=== PATIENT | female | born 1995 | race Hispanic/Latino ===

== ENCOUNTER 2016-06-27 20:42 | Emergency (ER) | payer OTHER ==
[2016-06-27] MEDS ORDERED: MORPHINE 4 MG/ML 1ML SYRINGE As Ordered ONE (21:38)
[2016-06-27] MEDS ORDERED: ACETAMINOPHEN 325 MG TAB As Ordered ONE (21:38)
[2016-06-27] MEDS ORDERED: ONDANSETRON 4 MG ORAL DISINTEGRATING TAB (S0181) As Ordered ONE (21:38)
[2016-06-27 21:48] LABS: BASO % 0.2 % (0.0-1.0); EOS # 0.2 K/mm3 (0.0-0.50); EOS % 1.1 % (0.0-3.0); LARGE UNSTAINED CELL # 0.1 K/mm3 (0.0-0.4); LARGE UNSTAINED CELL % 0.4 % (0.0-4.0); LYMPH # 0.4 K/mm3 (1.5-6.5); LYMPH % 2.5 % (24.0-44.0); MEAN CORPUSCULAR HEMOGLOBIN 26.8 pg (27.0-33.0); MEAN CORPUSCULAR HGB CONC 32.7 g/dl (32.0-36.5); MEAN CORPUSCULAR VOLUME 82.1 fl (80.0-96.0); MONO # 0.7 K/mm3 (0.0-0.8); NEUTROPHILS # 13.4 K/mm3 (1.8-7.7); NEUTROPHILS % 90.8 % (36.0-66.0); PLATELET COUNT, AUTOMATED 248 k/mm3 (150-450); RED CELL DISTRIBUTION WIDTH 12.8 % (11.5-14.5); WHITE BLOOD COUNT 14.8 K/mm3 (4.0-10.0)
[2016-06-27 22:14] LABS: ALBUMIN 3.3 GM/DL (3.2-5.2); ALBUMIN/GLOBULIN RATIO 0.77 (1.00-1.93); ALKALINE PHOSPHATASE 62 U/L (45-117); ALT/SGPT 16 U/L (12-78); AMYLASE 63 U/L (25-115); ANION GAP 9 MEQ/L (8-16); AST/SGOT 13 U/L (15-37); BILIRUBIN,DIRECT 0.1 MG/DL (0.0-0.2); BILIRUBIN,TOTAL 0.6 MG/DL (0.2-1.0); BLOOD UREA NITROGEN 10 MG/DL (7-18); CALCIUM LEVEL 8.3 MG/DL (8.5-10.1); CARBON DIOXIDE LEVEL 27 MEQ/L (21-32); CHLORIDE LEVEL 100 MEQ/L (98-107); CREATININE FOR GFR 0.86 MG/DL (0.55-1.02); GLOMERULAR FILTRATION RATE > 60.0 (>60); GLUCOSE, FASTING 97 MG/DL (70-105); POTASSIUM SERUM 3.7 MEQ/L (3.5-5.1); SODIUM LEVEL 136 MEQ/L (136-145); TOTAL PROTEIN 7.6 GM/DL (6.4-8.2)
--- NOTE | 2016-06-27 22:30 | REPUSA ---
CT of the abdomen and pelvis without contrast Clinical statement: Pain. Technique: Multiple axial CT images were obtained from the base of the lungs to the floor of the pelv is utilizing 5 mm axial slices without administration of contrast. Coronal and sagittal reconstructio ns were also obtained. No comparison is available. Findings: Chest: The visualized lung bases are clear. Abdomen: The kidneys are normal in size bilaterally. There is no evidence of hydronephrosis or nephro lithiasis. The liver, spleen, pancreas, gallbladder and adrenal glands are unremarkable. The aorta de monstrates normal caliber and contour. There is no abdominal lymphadenopathy or ascites. Pelvis: The bowel is unremarkable, with no obstructive or inflammatory changes. The appendix is porsha l. The urinary bladder is within normal limits. There is no pelvic lymphadenopathy or ascites. The ot her pelvic structures appear unremarkable. Bones: There are no suspicious osseous abnormalities seen. Impression: Unremarkable CT examination of the abdomen and pelvis.
--- NOTE | 2016-06-28 00:28 | EDDOCDS ---
Nurse's Notes [facility] Name: Laney Ames Age: 20 yrs Sex: Female : 1995 Arrival Date: 06/27/2016 Time: 20:42 Bed I5 / M5 Private MD: Alyson Avalos FNP Diagnosis: Urinary tract infection, site not specified-Pyelonephritis;Lower abdominal pain, unspecified-with Left Flank Pain Presentation: 06/27 20:50 Presenting complaint: Patient states: Left abdominal pain radiates to back. was seen at [address] urgent care. given Ibuprofen and antibiotic. has not helped with symptoms. Risk factors: the patient reports no vaginal bleeding. Adult Sepsis Screening: The patient does not have new or worsening altered mentation. Patient's respiratory rate is less than 22. Systolic blood pressure is greater than 100. Patient has a qSOFA score of 0- Negative Sepsis Screen. Suicide/Homicide risk assessment- the patient denies having any suicidal and/or homicidal ideations and does not present with any other emotional, behavioral or mental health complaints. Status: The patient is a dependent. Transition of care: patient was not received from another setting of care. 20:50 Acuity: MELIZA Level 3 rs3 20:50 Method Of Arrival: Walkin/Carried/Asstd rs3 Triage Assessment: 20:54 General: Appears in no apparent distress. Pain: Location: posterior aspect of left rs3 lateral abdomen, anterior aspect of left lateral abdomen and left upper quadrant. HIV screening NA for this visit Offered previously. GI: Reports lower abdominal pain, upper abd pain. CPS TEAM LEAD: 20:55 LMP 06/21/2016 3 Historical: - Allergies: No known drug Allergies; - Home Meds: 1. ibuprofen 800 mg oral tab 4 times per day 2. Adderall XR 30 mg Oral cp24 1 cap twice a day 3. levofloxacin 750 mg Oral tab 1 tab once daily - PMHx: ADHD; - PSHx: bunion removal; - Social history: Smoking status: Patient states was never smoker of tobacco. No barriers to communication noted, The patient speaks fluent Portuguese. - Family history: No immediate family members are acutely ill. - : The pt / caregiver states he / she is not on anticoagulants. Home medication list is obtained from the patient. - Exposure Risk Screening:: None identified. Screenin/24 00:25 Screening information is obtained from the patient. Fall risk: No risks identified. nn1 Assistance ADL's: requires no assistance with activities of daily living. Abuse/DV Screen: The patient / caregiver reports he/she is: not in a situation that causes fear, pain or injury. Nutritional screening: No deficits noted. Advance Directives: There is no active DNR order. home support is adequate. Assessment: 06/27 21:41 General: Appears in no apparent distress, uncomfortable, Behavior is appropriate for nn1 age, cooperative. Pain: Location: left upper quadrant Pain radiates to back Quality of pain is described as sharp, Pain began 1 day ago. Neurological: Level of Consciousness is awake, alert, obeys commands, Oriented to person, place, time. Respiratory: No deficits noted. GI: Abdomen is non- distended Bowel sounds present X 4 quads. Abd is soft X 4 quads Abd is tender to palpation in left upper quadrant. : Urine is cloudy, Reports pain in back when urinating, states she was diagnosed with UTI earlier today at urgent care, given antibiotics. States pain has become worse since. Derm: Skin is pink, warm & dry. 22:16 Reassessment: Patient appears in no apparent distress at this time. Patient states nn1 feeling better. Patient states symptoms have improved. 23:46 General: Appears in no apparent distress, comfortable, Behavior is appropriate for age, nn1 cooperative. Neurological: No deficits noted. Respiratory: No deficits noted. Derm: Skin is pink, warm & dry. 06/28 00:25 General: Appears in no apparent distress, comfortable, Behavior is appropriate for age, nn1 cooperative. Neurological: Level of Consciousness is awake, alert, obeys commands, Oriented to person, place, time. Respiratory: No deficits noted. Derm: Skin is pink, warm & dry. Vital Signs: 06/27 20:44 BP 126 / 85; Pulse 123; Resp 18 S; Temp 99.3(O); Pulse Ox 98% on R/A; Weight 79.38 kg gr2 (R); Height 5 ft. 6 in. (167.64 cm) (R); Pain 10/10; 21:54 BP 139 / 79; Pulse 107; Resp 20 S; Pulse Ox 100% on R/A; Pain 6/10; ms2 06/28 00:26 BP 119 / 74; Pulse 88; Resp 16; Temp 97.1(O); Pulse Ox 96% on R/A; Pain 4/10; rw1 06/27 20:44 Body Mass Index 28.25 (79.38 kg, 167.64 cm) gr2 Vitals: 06/27 20:44 Log In Time: June 27, 2016 at 20:44. gr2 ED Course: 20:43 Patient visited by Mat Padilla. gr2 20:43 Patient moved to Waiting gr2 20:44 Alyson Avalos is Private Physician. gr2 20:45 Patient visited by Mat Padilla. gr2 20:45 Patient moved to Pre RCE gr2 20:53 Triage Initiated rs3 20:59 Ruchi Pink PA-C is PHCP. ef1 20:59 Nadeem Dexter DO is Attending Physician. ef1 21:00 Patient visited by Ruchi Pink PA-C. ef1 21:00 Patient moved to I5 / cz 21:28 Patient visited by Ruchi Pink PA-C. ef1 21:40 -Blood Culture Sent. nn1 21:40 Lactic Acid (Caballero tube on ice) Sent. nn1 21:40 Amylase Sent. nn1 21:40 Basic Metabolic Profile Sent. nn1 21:40 CBC with Diff Sent. nn1 21:40 Lipase Sent. nn1 21:40 Liver Profile Sent. nn1 21:40 Urinalysis Sent. nn1 21:40 Urine Culture Sent. nn1 21:42 Inserted saline lock: 20 gauge in left forearm and blood collected. The patient nn1 tolerated the procedure well. 21:48 BLOOD CULTURES Sent. rs6 21:51 Patient visited by Arielle Colby PCA. rs6 21:51 Labs drawn. (by ED staff). Sent per order to lab. Labs/Blood culture drawn. rs6 21:53 Patient visited by Simon Ramirez RN. ms2 22:12 Patient visited by Ruchi Pink PA-C. ef1 22:23 Patient name changed from Laney\S\\S\Ames\S\ to Laney\S\Lyndsya\S\Ames. EDMS 22:25 [place] Payment Agreement was scanned into [employer] and attached to record. kf3 22:31 Patient visited by Delbert Smart. dpd 22:55 CT ABD & PELVIS: No Contrast Returned. EDMS 23:32 Patient visited by Ruchi Pink PA-C. ef1 23:47 Alyson Avalos is Referral Physician. ef1 06/28 00:26 The patient / caregiver is instructed regarding the plan of care and ED course. nn1 00:26 No procedures done that require assistance. nn1 00:26 Discontinued IV lock intact, bleeding controlled, pressure dressing applied, No rw1 redness/swelling at site. Administered Medications: 06/27 21:42 Drug: morphine 4 mg Route: IVP; Site: left antecubital; ms2 21:54 Follow up: BP 139 / 79; Pulse 107 bpm; Resp 20 bpm Spontaneous; Pulse Ox 100% RA; Pain ms2 10/12 Adult; down from 02/11 21:45 Drug: Ondansetron ODT 4 mg [ondansetron 4 mg disintegrating tablet (1 tabs)] Route: PO; ms2 21:48 Drug: NS 0.9% 1000 ml [sodium chloride 0.9 % intravenous solution] Route: IV; Rate: ms2 bolus; Site: left antecubital; 23:47 Follow up: IV Status: Completed infusion; IV Intake: 1000ml nn1 21:50 Drug: Acetaminophen 975 mg [acetaminophen 325 mg tablet (3 tabs)] Route: PO; ms2 23:46 Drug: cefTRIAXone 1 grams [ceftriaxone 250 mg solution for injection] Route: IVPB; nn1 Infused Over: 30 mins; Site: left forearm; 23:46 Drug: Phenazopyridine 200 mg [phenazopyridine 100 mg tablet (2 tabs)] Route: PO; nn1 Point of Care Testing: Urine : 21:51 hCG Reading: Negative; Control Reading: Positive; rs6 Ranges: Intake: 23:47 IV: 1000.00ml; Total: 1000.00ml. nn1 Order Results: Lab Order: Amylase; SPEC'M 06/27/16 21:25 Test: AMYLASE; Value: 63; Range: 25-115; Units: U/L; Status: F Lab Order: Basic Metabolic Profile; SPEC'M 06/27/16 21:25 Test: GLUCOSE, FASTING; Value: 97; Range: 70-105; Units: MG/DL; Status: F Test: BLOOD UREA NITROGEN; Value: 10; Range: 7-18; Units: MG/DL; Status: F Test: CREATININE FOR GFR; Value: 0.86; Range: 0.55-1.02; Units: MG/DL; Status: F Test: GLOMERULAR FILTRATION RATE; Value: > 60.0; Range: >60; Status: F Test: SODIUM LEVEL; Value: 136; Range: 136-145; Units: MEQ/L; Status: F Test: POTASSIUM SERUM; Value: 3.7; Range: 3.5-5.1; Units: MEQ/L; Status: F Test: CHLORIDE LEVEL; Value: 100; Range: 98-107; Units: MEQ/L; Status: F Test: CARBON DIOXIDE LEVEL; Value: 27; Range: 21-32; Units: MEQ/L; Status: F Test: ANION GAP; Value: 9; Range: 8-16; Units: MEQ/L; Status: F Test: CALCIUM LEVEL; Value: 8.3; Range: 8.5-10.1; Abnormal: Below low normal; Units: MG/DL; Status: F Test Note: ; Units are mL/min/1.73 m2 Chronic Kidney Disease Staging per NKF: Stage I & II GFR >=60 Normal to Mildly Decreased Stage III GFR 30-59 Moderately Decreased Stage IV GFR 15-29 Severely Decreased Stage V GFR <15 Very Little GFR Left ESRD GFR <15 on [employer] Lab Order: CBC with Diff; SPEC'M 06/27/16 21:25 Test: WHITE BLOOD COUNT; Value: 14.8; Range: 4.0-10.0; Abnormal: Above high normal; Units: K/mm3; Status: F Test: RED BLOOD COUNT; Value: 4.95; Range: 4.00-5.40; Units: M/mm3; Status: F Test: HEMOGLOBIN; Value: 13.3; Range: 12.0-16.0; Units: g/dl; Status: F Test: HEMATOCRIT; Value: 40.7; Range: 36.0-47.0; Units: %; Status: F Test: MEAN CORPUSCULAR VOLUME; Value: 82.1; Range: 80.0-96.0; Units: fl; Status: F Test: MEAN CORPUSCULAR HEMOGLOBIN; Value: 26.8; Range: 27.0-33.0; Abnormal: Below low normal; Units: pg; Status: F Test: MEAN CORPUSCULAR HGB CONC; Value: 32.7; Range: 32.0-36.5; Units: g/dl; Status: F Test: RED CELL DISTRIBUTION WIDTH; Value: 12.8; Range: 11.5-14.5; Units: %; Status: F Test: PLATELET COUNT, AUTOMATED; Value: 248; Range: 150-450; Units: k/mm3; Status: F Test: NEUTROPHILS %; Value: 90.8; Range: 36.0-66.0; Abnormal: Above high normal; Units: %; Status: F Test: LYMPH %; Value: 2.5; Range: 24.0-44.0; Abnormal: Below low normal; Units: %; Status: F Test: MONO %; Value: 5.0; Range: 0.0-5.0; Units: %; Status: F Test: EOS %; Value: 1.1; Range: 0.0-3.0; Units: %; Status: F Test: BASO %; Value: 0.2; Range: 0.0-1.0; Units: %; Status: F Test: LARGE UNSTAINED CELL %; Value: 0.4; Range: 0.0-4.0; Units: %; Status: F Test: NEUTROPHILS #; Value: 13.4; Range: 1.8-7.7; Abnormal: Above high normal; Units: K/mm3; Status: F Test: LYMPH #; Value: 0.4; Range: 1.5-6.5; Abnormal: Below low normal; Units: K/mm3; Status: F Test: MONO #; Value: 0.7; Range: 0.0-0.8; Units: K/mm3; Status: F Test: EOS #; Value: 0.2; Range: 0.0-0.50; Units: K/mm3; Status: F Test: BASO #; Value: 0.0; Range: 0.0-0.2; Units: K/mm3; Status: F Test: LARGE UNSTAINED CELL #; Value: 0.1; Range: 0.0-0.4; Units: K/mm3; Status: F Lab Order: Lipase; [facility] 06/27/16 21:25 Test: LIPASE; Value: 90; Range: 73-393; Units: U/L; Status: F Lab Order: Liver Profile; [facility] 06/27/16 21:25 Test: AST/SGOT; Value: 13; Range: 15-37; Abnormal: Below low normal; Units: U/L; Status: F Test: ALT/SGPT; Value: 16; Range: 12-78; Units: U/L; Status: F Test: ALKALINE PHOSPHATASE; Value: 62; Range: 45-117; Units: U/L; Status: F Test: BILIRUBIN,TOTAL; Value: 0.6; Range: 0.2-1.0; Units: MG/DL; Status: F Test: BILIRUBIN,DIRECT; Value: 0.1; Range: 0.0-0.2; Units: MG/DL; Status: F Test: TOTAL PROTEIN; Value: 7.6; Range: 6.4-8.2; Units: GM/DL; Status: F Test: ALBUMIN; Value: 3.3; Range: 3.2-5.2; Units: GM/DL; Status: F Test: ALBUMIN/GLOBULIN RATIO; Value: 0.77; Range: 1.00-1.93; Abnormal: Below low normal; Status: F Lab Order: Urinalysis; [facility] 06/27/16 21:25 Test: APPEARANCE, URINE; Value: HAZY; Range: CLEAR; Status: F Test: COLOR, URINE; Value: YELLOW; Range: YELLOW; Status: F Test: PH,URINE; Value: 7.0; Range: 5.0-9.0; Units: UNITS; Status: F Test: SPECIFIC GRAVITY URINE AUTO; Value: 1.019; Range: 1.002-1.035; Status: F Test: PROTEIN, URINE AUTO; Value: 1+; Range: NEGATIVE; Abnormal: Above high normal; Units: mg/dL; Status: F Test: GLUCOSE, URINE (UA) AUTO; Value: NEGATIVE; Range: NEGATIVE; Units: mg/dL; Status: F Test: KETONE, URINE AUTO; Value: NEGATIVE; Range: NEGATIVE; Units: mg/dL; Status: F Test: UROBILINOGEN, URINE AUTO; Value: 0.2; Range: 0.0-2.0; Units: mg/dL; Status: F Test: BILIRUBIN, URINE AUTO; Value: NEGATIVE; Range: NEGATIVE; Status: F Test: NITRITE, URINE AUTO; Value: NEGATIVE; Range: NEGATIVE; Status: F Test: LEUKOCYTE ESTERASE, URINE AUTO; Value: 1+; Range: NEGATIVE; Abnormal: Above high normal; Status: F Test: BLOOD, URINE BLOOD; Value: NEGATIVE; Range: NEGATIVE; Status: F Test: WBC, URINE AUTO; Value: 36; Range: 0-3; Abnormal: Above high normal; Units: /HPF; Status: F Test: RBC, URINE AUTO; Value: 12; Range: 0-3; Abnormal: Above high normal; Units: /HPF; Status: F Test: BACTERIA, URINE AUTO; Value: 1+; Range: NEGATIVE; Abnormal: Above high normal; Status: F Test: SQUAMOUS EPITHELIAL CELL UR AU; Value: 3; Range: 0-6; Units: /HPF; Status: F Test: MUCUS, URINE; Value: SMALL; Range: NEGATIVE; Status: F Test: HYALINE CAST, URINE AUTO; Value: 0; Range: 0-1; Units: /LPF; Status: F Lab Order: Lactic Acid (Caballero tube on ice); SPEC'M 06/27/16 21:25 Test: LACTIC ACID SEPSIS PROTOCOL; Value: 1.2; Range: 0.4-2.0; Units: MMOL/L; Status: F Radiology Order: CT ABD & PELVIS: No Contrast Test: CT ABD & PELVIS: No Contrast REASON FOR EXAMINATION: Renal colic; ; CT of the abdomen and pelvis without contrast; Clinical statement: Pain.; Technique: Multiple axial CT images were obtained from the base of the lungs to the floor of the pelv; is utilizing 5 mm axial slices without administration of contrast. Coronal and sagittal reconstructio; ns were also obtained.; No comparison is available.; Findings:; Chest: The visualized lung bases are clear.; Abdomen: The kidneys are normal in size bilaterally. There is no evidence of hydronephrosis or nephro; lithiasis. The liver, spleen, pancreas, gallbladder and adrenal glands are unremarkable. The aorta de; monstrates normal caliber and contour. There is no abdominal lymphadenopathy or ascites.; Pelvis: The bowel is unremarkable, with no obstructive or inflammatory changes. The appendix is porsha; l. The urinary bladder is within normal limits. There is no pelvic lymphadenopathy or ascites. The ot; her pelvic structures appear unremarkable.; Bones: There are no suspicious osseous abnormalities seen.; Impression: Unremarkable CT examination of the abdomen and pelvis.; ; Outcome: 23:47 Discharge ordered by Provider. ef1 06/28 00:25 Discharge Assessment: Patient awake, alert and oriented x 3. No cognitive and/or nn1 functional deficits noted. Patient verbalized understanding of disposition instructions. patient administered narcotics - yes. Pt provided with safe discharge. The following High Risk Discharge criteria are identified: None. Discharged to home ambulatory, with significant other. Condition: stable Condition: improved. CT Study completed. Property :Personal belongings accompany Pt. 00:27 Patient left the ED. rw1 Signatures: Dispatcher [employer] EDMS Simon Ramirez RN RN ms2 Rehan Marshall RN RN cz Donoghue, Dennis dpd Workman, Robert, LPN CONSULTING SYSTEMS ENGINEER rw1 Nazario Hayes, Reg Reg kf3 Ruchi Pink, PA-C PA-C ef1 Alcira Desouza RN RN rs3 Mat Padilla gr2 Arielle Colby, LEATHER STITCHER LEATHER STITCHER rs6 Georgina HessRN RN nn1 Corrections: (The following items were deleted from the chart) 06/27 22:15 20:54 Allergies: no known allergies; rs3 nn1 22:15 20:54 Home Meds: antibiotic unknown; rs3 nn1 MTDD
--- NOTE | 2016-06-28 00:28 | EDDOCDS ---
Physician Documentation [facility] Name: Laney Ames Age: 20 yrs Sex: Female : 1995 Arrival Date: 06/27/2016 Time: 20:42 Bed I5 / M5 Private MD: Alyson Avalos FNP Disposition: 06/27/16 23:47 Discharged to Home/Self Care. Impression: Urinary tract infection, site not specified - Pyelonephritis, Lower abdominal pain, unspecified - with Left Flank Pain. - Condition is Stable. - Discharge Instructions: Abdominal Pain, Adult, Urinary Tract Infection, [id number], Flank Pain, [id number]. - Prescriptions for Pyridium 200 mg Oral Tablet - take 1 tablet by ORAL route every 8 hours for 3 days; 9 tablet. - Medication Reconciliation, Local Pharmacy Hours form. - Follow up: Alyson Avalos; When: 1 - 2 days; Reason: Recheck today's complaints, Continuance of care. Follow up: Emergency Department; Reason: Worsening of conditions. - Problem is new. - Symptoms have improved. Historical: - Allergies: No known drug Allergies; - Home Meds: 1. ibuprofen 800 mg oral tab 4 times per day 2. Adderall XR 30 mg Oral cp24 1 cap twice a day 3. levofloxacin 750 mg Oral tab 1 tab once daily - PMHx: ADHD; - PSHx: bunion removal; - Social history: Smoking status: Patient states was never smoker of tobacco. No barriers to communication noted, The patient speaks fluent Eritrean. - Family history: No immediate family members are acutely ill. - : The pt / caregiver states he / she is not on anticoagulants. Home medication list is obtained from the patient. - Exposure Risk Screening:: None identified. LITHOPONE MILL WORKER: 06/27 20:55 LMP 06/21/2016 rs3 Vital Signs: 20:44 BP 126 / 85; Pulse 123; Resp 18 S; Temp 99.3(O); Pulse Ox 98% on R/A; Weight 79.38 kg / gr2 175 lbs (R); Height 5 ft. 6 in. (167.64 cm) (R); Pain 10/10; 21:54 BP 139 / 79; Pulse 107; Resp 20 S; Pulse Ox 100% on R/A; Pain 6/10; ms2 06/28 00:26 BP 119 / 74; Pulse 88; Resp 16; Temp 97.1(O); Pulse Ox 96% on R/A; Pain 4/10; rw1 06/27 20:44 Body Mass Index 28.25 (79.38 kg, 167.64 cm) gr2 MDM: 06/27 21:00 IV Saline Lock ordered. ef1 21:00 Undress patient appropriately for examination ordered. ef1 21:00 NS 0.9% 1000 ml IV at bolus once ordered. ef1 21:01 Urine Culture Ordered. EDMS 21:01 UCG by Nursing ordered. ef1 21:01 Amylase Ordered. EDMS 21:01 Basic Metabolic Profile Ordered. EDMS 21:01 CBC with Diff Ordered. EDMS 21:01 Lipase Ordered. EDMS 21:01 Liver Profile Ordered. EDMS 21:01 Urinalysis Ordered. EDMS 21:01 NOTHING BY MOUTH+DIET ordered. EDMS 21:11 morphine 4 mg IVP once ordered. ef1 21:11 Ondansetron ODT Oral Disintegrating Tablet 4 mg PO once ordered. ef1 21:11 -Blood Culture (Adults Only), peripheral from different site, or from device/port/PICC ef1 etc. if present ordered. 21:11 Acetaminophen Tablet 975 mg PO once ordered. ef1 21:12 CT ABD & PELVIS: No Contrast Ordered. EDMS 21:12 Lactic Acid (Caballero tube on ice) Ordered. EDMS 21:12 -Blood Culture Ordered. EDMS 21:24 -Blood Culture (Adults Only), peripheral from different site, or from device/port/PICC rs6 etc. if present complete. 21:26 BLOOD CULTURES Ordered. EDMS 22:18 Financial registration complete. kf3 22:25 [facility] Payment Agreement was scanned into [employer] and attached to record. kf3 23:32 Basic Metabolic Profile Reviewed. ef1 23:32 CBC with Diff Reviewed. ef1 23:32 Liver Profile Reviewed. ef1 23:32 Urinalysis Reviewed. ef1 23:32 Amylase Reviewed. ef1 23:32 Lipase Reviewed. ef1 23:32 Lactic Acid (Caballero tube on ice) Reviewed. ef1 23:32 CT ABD & PELVIS: No Contrast Reviewed. ef1 23:34 cefTRIAXone 1 grams IVPB once over 30 mins; dilute in 50mL of NS or D5W ordered. ef1 23:39 Phenazopyridine 200 mg PO once ordered. ef1 Point of Care Testing: Urine : 21:51 hCG Reading: Negative; Control Reading: Positive; rs6 Ranges: Administered Medications: 21:42 Drug: morphine 4 mg Route: IVP; Site: left antecubital; ms2 21:54 Follow up: BP 139 / 79; Pulse 107 bpm; Resp 20 bpm Spontaneous; Pulse Ox 100% RA; Pain ms2 10/12 Adult; down from 02/11 21:45 Drug: Ondansetron ODT 4 mg [ondansetron 4 mg disintegrating tablet (1 tabs)] Route: PO; ms2 21:48 Drug: NS 0.9% 1000 ml [sodium chloride 0.9 % intravenous solution] Route: IV; Rate: ms2 bolus; Site: left antecubital; 23:47 Follow up: IV Status: Completed infusion; IV Intake: 1000ml nn1 21:50 Drug: Acetaminophen 975 mg [acetaminophen 325 mg tablet (3 tabs)] Route: PO; ms2 23:46 Drug: cefTRIAXone 1 grams [ceftriaxone 250 mg solution for injection] Route: IVPB; nn1 Infused Over: 30 mins; Site: left forearm; 23:46 Drug: Phenazopyridine 200 mg [phenazopyridine 100 mg tablet (2 tabs)] Route: PO; nn1 Signatures: Dispatcher [employer] [facility] Jose Luis Fermin LPN MANAGER METROLOGY rw1 Nazario Hayes, Reg Reg kf3 Ruchi Pink, PA-C PA-C ef1 Alcira Desouza RN RN rs3 Arielle Colby, DOCK SUPERINTENDENT DOCK SUPERINTENDENT rs6 Georgina Hess RN RN nn1 Simon Ramirez RN ms2 The chart was reviewed and I authenticate all verbal orders and agree with the evaluation and treatment provided.Corrections: (The following items were deleted from the chart) 22:15 20:54 Allergies: no known allergies; rs3 nn1 22:15 20:54 Home Meds: antibiotic unknown; rs3 nn1 Attachments: 22:25 [facility] Payment Agreement kf3 MTDD
--- NOTE | 2016-06-30 01:28 | EDDOCDS ---
Nurse's Notes [facility] Name: Laney Ames Age: 20 yrs Sex: Female : 1995 Arrival Date: 06/27/2016 Time: 20:42 Bed I5 / M5 Private MD: Alyson Avalos FNP Diagnosis: Urinary tract infection, site not specified-Pyelonephritis;Lower abdominal pain, unspecified-with Left Flank Pain Presentation: 06/27 20:50 Presenting complaint: Patient states: Left abdominal pain radiates to back. was seen at [address] urgent care. given Ibuprofen and antibiotic. has not helped with symptoms. Risk factors: the patient reports no vaginal bleeding. Adult Sepsis Screening: The patient does not have new or worsening altered mentation. Patient's respiratory rate is less than 22. Systolic blood pressure is greater than 100. Patient has a qSOFA score of 0- Negative Sepsis Screen. Suicide/Homicide risk assessment- the patient denies having any suicidal and/or homicidal ideations and does not present with any other emotional, behavioral or mental health complaints. Status: The patient is a dependent. Transition of care: patient was not received from another setting of care. 20:50 Acuity: MELIZA Level 3 rs3 20:50 Method Of Arrival: Walkin/Carried/Asstd rs3 Triage Assessment: 20:54 General: Appears in no apparent distress. Pain: Location: posterior aspect of left rs3 lateral abdomen, anterior aspect of left lateral abdomen and left upper quadrant. HIV screening NA for this visit Offered previously. GI: Reports lower abdominal pain, upper abd pain. RAG BOILER: 20:55 LMP 06/21/2016 3 Historical: - Allergies: No known drug Allergies; - Home Meds: 1. ibuprofen 800 mg oral tab 4 times per day 2. Adderall XR 30 mg Oral cp24 1 cap twice a day 3. levofloxacin 750 mg Oral tab 1 tab once daily - PMHx: ADHD; - PSHx: bunion removal; - Social history: Smoking status: Patient states was never smoker of tobacco. No barriers to communication noted, The patient speaks fluent Icelandic. - Family history: No immediate family members are acutely ill. - : The pt / caregiver states he / she is not on anticoagulants. Home medication list is obtained from the patient. - Exposure Risk Screening:: None identified. Screenin/24 00:25 Screening information is obtained from the patient. Fall risk: No risks identified. nn1 Assistance ADL's: requires no assistance with activities of daily living. Abuse/DV Screen: The patient / caregiver reports he/she is: not in a situation that causes fear, pain or injury. Nutritional screening: No deficits noted. Advance Directives: There is no active DNR order. home support is adequate. Assessment: 06/27 21:41 General: Appears in no apparent distress, uncomfortable, Behavior is appropriate for nn1 age, cooperative. Pain: Location: left upper quadrant Pain radiates to back Quality of pain is described as sharp, Pain began 1 day ago. Neurological: Level of Consciousness is awake, alert, obeys commands, Oriented to person, place, time. Respiratory: No deficits noted. GI: Abdomen is non- distended Bowel sounds present X 4 quads. Abd is soft X 4 quads Abd is tender to palpation in left upper quadrant. : Urine is cloudy, Reports pain in back when urinating, states she was diagnosed with UTI earlier today at urgent care, given antibiotics. States pain has become worse since. Derm: Skin is pink, warm & dry. 22:16 Reassessment: Patient appears in no apparent distress at this time. Patient states nn1 feeling better. Patient states symptoms have improved. 23:46 General: Appears in no apparent distress, comfortable, Behavior is appropriate for age, nn1 cooperative. Neurological: No deficits noted. Respiratory: No deficits noted. Derm: Skin is pink, warm & dry. 06/28 00:25 General: Appears in no apparent distress, comfortable, Behavior is appropriate for age, nn1 cooperative. Neurological: Level of Consciousness is awake, alert, obeys commands, Oriented to person, place, time. Respiratory: No deficits noted. Derm: Skin is pink, warm & dry. Vital Signs: 06/27 20:44 BP 126 / 85; Pulse 123; Resp 18 S; Temp 99.3(O); Pulse Ox 98% on R/A; Weight 79.38 kg gr2 (R); Height 5 ft. 6 in. (167.64 cm) (R); Pain 10/10; 21:54 BP 139 / 79; Pulse 107; Resp 20 S; Pulse Ox 100% on R/A; Pain 6/10; ms2 06/28 00:26 BP 119 / 74; Pulse 88; Resp 16; Temp 97.1(O); Pulse Ox 96% on R/A; Pain 4/10; rw1 06/27 20:44 Body Mass Index 28.25 (79.38 kg, 167.64 cm) gr2 Vitals: 06/27 20:44 Log In Time: June 27, 2016 at 20:44. gr2 ED Course: 20:43 Patient visited by Mat Padilla. gr2 20:43 Patient moved to Waiting gr2 20:44 Alyson Avalos is Private Physician. gr2 20:45 Patient visited by Mat Padilla. gr2 20:45 Patient moved to Pre RCE gr2 20:53 Triage Initiated rs3 20:59 Ruchi Pink PA-C is PHCP. ef1 20:59 Nadeem Dexter DO is Attending Physician. ef1 21:00 Patient visited by Ruchi Pink PA-C. ef1 21:00 Patient moved to I5 / cz 21:28 Patient visited by Ruchi Pink PA-C. ef1 21:40 -Blood Culture Sent. nn1 21:40 Lactic Acid (Caballero tube on ice) Sent. nn1 21:40 Amylase Sent. nn1 21:40 Basic Metabolic Profile Sent. nn1 21:40 CBC with Diff Sent. nn1 21:40 Lipase Sent. nn1 21:40 Liver Profile Sent. nn1 21:40 Urinalysis Sent. nn1 21:40 Urine Culture Sent. nn1 21:42 Inserted saline lock: 20 gauge in left forearm and blood collected. The patient nn1 tolerated the procedure well. 21:48 BLOOD CULTURES Sent. rs6 21:51 Patient visited by Arielle Colby PCA. rs6 21:51 Labs drawn. (by ED staff). Sent per order to lab. Labs/Blood culture drawn. rs6 21:53 Patient visited by Simon Ramirez RN. ms2 22:12 Patient visited by Ruchi Pink PA-C. ef1 22:23 Patient name changed from Laney\S\\S\Ames\S\ to Laney\S\Lyndsay\S\Ames. EDMS 22:25 [facility] Payment Agreement was scanned into [employer] and attached to record. kf3 22:31 Patient visited by Delbert Smart. dpd 22:55 CT ABD & PELVIS: No Contrast Returned. EDMS 23:32 Patient visited by Ruchi Pink PA-C. ef1 23:47 Alyson Avalos is Referral Physician. ef1 06/28 00:26 The patient / caregiver is instructed regarding the plan of care and ED course. nn1 00:26 No procedures done that require assistance. nn1 00:26 Discontinued IV lock intact, bleeding controlled, pressure dressing applied, No rw1 redness/swelling at site. 17:33 T-Sheet-- Draft Copy was scanned into [employer] and attached to record. klr 06/29 19:55 Radiology Report was scanned into [employer] and attached to record. klr Administered Medications: 06/27 21:42 Drug: morphine 4 mg Route: IVP; Site: left antecubital; ms2 21:54 Follow up: BP 139 / 79; Pulse 107 bpm; Resp 20 bpm Spontaneous; Pulse Ox 100% RA; Pain ms2 10/12 Adult; down from 02/11 21:45 Drug: Ondansetron ODT 4 mg [ondansetron 4 mg disintegrating tablet (1 tabs)] Route: PO; ms2 21:48 Drug: NS 0.9% 1000 ml [sodium chloride 0.9 % intravenous solution] Route: IV; Rate: ms2 bolus; Site: left antecubital; 23:47 Follow up: IV Status: Completed infusion; IV Intake: 1000ml nn1 21:50 Drug: Acetaminophen 975 mg [acetaminophen 325 mg tablet (3 tabs)] Route: PO; ms2 23:46 Drug: cefTRIAXone 1 grams [ceftriaxone 250 mg solution for injection] Route: IVPB; nn1 Infused Over: 30 mins; Site: left forearm; 23:46 Drug: Phenazopyridine 200 mg [phenazopyridine 100 mg tablet (2 tabs)] Route: PO; nn1 Point of Care Testing: Urine : 21:51 hCG Reading: Negative; Control Reading: Positive; rs6 Ranges: Intake: 23:47 IV: 1000.00ml; Total: 1000.00ml. nn1 Order Results: Lab Order: Amylase; SPEC'M 06/27/16 21:25 Test: AMYLASE; Value: 63; Range: 25-115; Units: U/L; Status: F Lab Order: Basic Metabolic Profile; SPEC'06/27/16 21:25 Test: GLUCOSE, FASTING; Value: 97; Range: 70-105; Units: MG/DL; Status: F Test: BLOOD UREA NITROGEN; Value: 10; Range: 7-18; Units: MG/DL; Status: F Test: CREATININE FOR GFR; Value: 0.86; Range: 0.55-1.02; Units: MG/DL; Status: F Test: GLOMERULAR FILTRATION RATE; Value: > 60.0; Range: >60; Status: F Test: SODIUM LEVEL; Value: 136; Range: 136-145; Units: MEQ/L; Status: F Test: POTASSIUM SERUM; Value: 3.7; Range: 3.5-5.1; Units: MEQ/L; Status: F Test: CHLORIDE LEVEL; Value: 100; Range: 98-107; Units: MEQ/L; Status: F Test: CARBON DIOXIDE LEVEL; Value: 27; Range: 21-32; Units: MEQ/L; Status: F Test: ANION GAP; Value: 9; Range: 8-16; Units: MEQ/L; Status: F Test: CALCIUM LEVEL; Value: 8.3; Range: 8.5-10.1; Abnormal: Below low normal; Units: MG/DL; Status: F Test Note: ; Units are mL/min/1.73 m2 Chronic Kidney Disease Staging per NKF: Stage I & II GFR >=60 Normal to Mildly Decreased Stage III GFR 30-59 Moderately Decreased Stage IV GFR 15-29 Severely Decreased Stage V GFR <15 Very Little GFR Left ESRD GFR <15 on OIL REFINERY OPERATOR Lab Order: CBC with Diff; SPEC06/27/16 21:25 Test: WHITE BLOOD COUNT; Value: 14.8; Range: 4.0-10.0; Abnormal: Above high normal; Units: K/mm3; Status: F Test: RED BLOOD COUNT; Value: 4.95; Range: 4.00-5.40; Units: M/mm3; Status: F Test: HEMOGLOBIN; Value: 13.3; Range: 12.0-16.0; Units: g/dl; Status: F Test: HEMATOCRIT; Value: 40.7; Range: 36.0-47.0; Units: %; Status: F Test: MEAN CORPUSCULAR VOLUME; Value: 82.1; Range: 80.0-96.0; Units: fl; Status: F Test: MEAN CORPUSCULAR HEMOGLOBIN; Value: 26.8; Range: 27.0-33.0; Abnormal: Below low normal; Units: pg; Status: F Test: MEAN CORPUSCULAR HGB CONC; Value: 32.7; Range: 32.0-36.5; Units: g/dl; Status: F Test: RED CELL DISTRIBUTION WIDTH; Value: 12.8; Range: 11.5-14.5; Units: %; Status: F Test: PLATELET COUNT, AUTOMATED; Value: 248; Range: 150-450; Units: k/mm3; Status: F Test: NEUTROPHILS %; Value: 90.8; Range: 36.0-66.0; Abnormal: Above high normal; Units: %; Status: F Test: LYMPH %; Value: 2.5; Range: 24.0-44.0; Abnormal: Below low normal; Units: %; Status: F Test: MONO %; Value: 5.0; Range: 0.0-5.0; Units: %; Status: F Test: EOS %; Value: 1.1; Range: 0.0-3.0; Units: %; Status: F Test: BASO %; Value: 0.2; Range: 0.0-1.0; Units: %; Status: F Test: LARGE UNSTAINED CELL %; Value: 0.4; Range: 0.0-4.0; Units: %; Status: F Test: NEUTROPHILS #; Value: 13.4; Range: 1.8-7.7; Abnormal: Above high normal; Units: K/mm3; Status: F Test: LYMPH #; Value: 0.4; Range: 1.5-6.5; Abnormal: Below low normal; Units: K/mm3; Status: F Test: MONO #; Value: 0.7; Range: 0.0-0.8; Units: K/mm3; Status: F Test: EOS #; Value: 0.2; Range: 0.0-0.50; Units: K/mm3; Status: F Test: BASO #; Value: 0.0; Range: 0.0-0.2; Units: K/mm3; Status: F Test: LARGE UNSTAINED CELL #; Value: 0.1; Range: 0.0-0.4; Units: K/mm3; Status: F Lab Order: Lipase; [facility] 06/27/16 21:25 Test: LIPASE; Value: 90; Range: 73-393; Units: U/L; Status: F Lab Order: Liver Profile; [facility] 06/27/16:25 Test: AST/SGOT; Value: 13; Range: 15-37; Abnormal: Below low normal; Units: U/L; Status: F Test: ALT/SGPT; Value: 16; Range: 12-78; Units: U/L; Status: F Test: ALKALINE PHOSPHATASE; Value: 62; Range: 45-117; Units: U/L; Status: F Test: BILIRUBIN,TOTAL; Value: 0.6; Range: 0.2-1.0; Units: MG/DL; Status: F Test: BILIRUBIN,DIRECT; Value: 0.1; Range: 0.0-0.2; Units: MG/DL; Status: F Test: TOTAL PROTEIN; Value: 7.6; Range: 6.4-8.2; Units: GM/DL; Status: F Test: ALBUMIN; Value: 3.3; Range: 3.2-5.2; Units: GM/DL; Status: F Test: ALBUMIN/GLOBULIN RATIO; Value: 0.77; Range: 1.00-1.93; Abnormal: Below low normal; Status: F Lab Order: Urinalysis; [facility] 06/27/16 Test: APPEARANCE, URINE; Value: HAZY; Range: CLEAR; Status: F Test: COLOR, URINE; Value: YELLOW; Range: YELLOW; Status: F Test: PH,URINE; Value: 7.0; Range: 5.0-9.0; Units: UNITS; Status: F Test: SPECIFIC GRAVITY URINE AUTO; Value: 1.019; Range: 1.002-1.035; Status: F Test: PROTEIN, URINE AUTO; Value: 1+; Range: NEGATIVE; Abnormal: Above high normal; Units: mg/dL; Status: F Test: GLUCOSE, URINE (UA) AUTO; Value: NEGATIVE; Range: NEGATIVE; Units: mg/dL; Status: F Test: KETONE, URINE AUTO; Value: NEGATIVE; Range: NEGATIVE; Units: mg/dL; Status: F Test: UROBILINOGEN, URINE AUTO; Value: 0.2; Range: 0.0-2.0; Units: mg/dL; Status: F Test: BILIRUBIN, URINE AUTO; Value: NEGATIVE; Range: NEGATIVE; Status: F Test: NITRITE, URINE AUTO; Value: NEGATIVE; Range: NEGATIVE; Status: F Test: LEUKOCYTE ESTERASE, URINE AUTO; Value: 1+; Range: NEGATIVE; Abnormal: Above high normal; Status: F Test: BLOOD, URINE BLOOD; Value: NEGATIVE; Range: NEGATIVE; Status: F Test: WBC, URINE AUTO; Value: 36; Range: 0-3; Abnormal: Above high normal; Units: /HPF; Status: F Test: RBC, URINE AUTO; Value: 12; Range: 0-3; Abnormal: Above high normal; Units: /HPF; Status: F Test: BACTERIA, URINE AUTO; Value: 1+; Range: NEGATIVE; Abnormal: Above high normal; Status: F Test: SQUAMOUS EPITHELIAL CELL UR AU; Value: 3; Range: 0-6; Units: /HPF; Status: F Test: MUCUS, URINE; Value: SMALL; Range: NEGATIVE; Status: F Test: HYALINE CAST, URINE AUTO; Value: 0; Range: 0-1; Units: /LPF; Status: F Lab Order: Urine Culture; SPEC'M 06/27/16 21:25 Test: URINE CULTURE; Value: <EXTERNAL COMMENT eCWMed> FULL REPORT IN LAB NOTES (eCW and Medent).; Status: F Test: URINE CULTURE; Value: URINE CULTURE RESULT SPECIMEN APPEARS CONTAMINATED; Status: F Lab Order: Lactic Acid (Caballero tube on ice); SPEC'M 06/27/16 21:25 Test: LACTIC ACID SEPSIS PROTOCOL; Value: 1.2; Range: 0.4-2.0; Units: MMOL/L; Status: F Lab Order: -Blood Culture; SPEC'M 06/27/16 21:25 Test: BLOOD CULTURE; Value: No growth after 24 hours . All specimens observed; Status: F Test: BLOOD CULTURE; Value: for 5 days. Results final at that time.; Status: F Test: BLOOD CULTURE; Value: No Growth after 48 hours. All Specimens observed; Status: F Test: BLOOD CULTURE; Value: for 7 days. Results final at that time.; Status: F Lab Order: BLOOD CULTURES; SPEC'M 06/27/16 21:47 Test: BLOOD CULTURE; Value: No growth after 24 hours . All specimens observed; Status: F Test: BLOOD CULTURE; Value: for 5 days. Results final at that time.; Status: F Test: BLOOD CULTURE; Value: No Growth after 48 hours. All Specimens observed; Status: F Test: BLOOD CULTURE; Value: for 7 days. Results final at that time.; Status: F Radiology Order: CT ABD & PELVIS: No Contrast Test: CT ABD & PELVIS: No Contrast REASON FOR EXAMINATION: Renal colic; ; CT of the abdomen and pelvis without contrast; Clinical statement: Pain.; Technique: Multiple axial CT images were obtained from the base of the lungs to the floor of the pelv; is utilizing 5 mm axial slices without administration of contrast. Coronal and sagittal reconstructio; ns were also obtained.; No comparison is available.; Findings:; Chest: The visualized lung bases are clear.; Abdomen: The kidneys are normal in size bilaterally. There is no evidence of hydronephrosis or nephro; lithiasis. The liver, spleen, pancreas, gallbladder and adrenal glands are unremarkable. The aorta de; monstrates normal caliber and contour. There is no abdominal lymphadenopathy or ascites.; Pelvis: The bowel is unremarkable, with no obstructive or inflammatory changes. The appendix is porsha; l. The urinary bladder is within normal limits. There is no pelvic lymphadenopathy or ascites. The ot; her pelvic structures appear unremarkable.; Bones: There are no suspicious osseous abnormalities seen.; Impression: Unremarkable CT examination of the abdomen and pelvis.; ; Outcome: 23:47 Discharge ordered by Provider. ef1 06/28 00:25 Discharge Assessment: Patient awake, alert and oriented x 3. No cognitive and/or nn1 functional deficits noted. Patient verbalized understanding of disposition instructions. patient administered narcotics - yes. Pt provided with safe discharge. The following High Risk Discharge criteria are identified: None. Discharged to home ambulatory, with significant other. Condition: stable Condition: improved. CT Study completed. Property :Personal belongings accompany Pt. 00:27 Patient left the ED. rw1 Signatures: Dispatcher [employer] EDMS Simon Ramirez,RN RN ms2 Rehan Marshall, JUANA RN cz Delbert Smart Robert,EXECUTIVE STAFF ASSISTANT EXECUTIVE STAFF ASSISTANT rw1 Nazario Hayes, Reg Reg kf3 Ruchi Pink, PA-C PA-C ef1 Alcira Desouza,JUANA RN rs3 Mat Padilla gr2 Earnestine, Arielle, ROTARY SLICING MACHINE OPERATOR ROTARY SLICING MACHINE OPERATOR rs6 Georgina Hess RN RN nn1 Makayla Tom Corrections: (The following items were deleted from the chart) 06/27 22:15 20:54 Allergies: no known allergies; 3 nn1 22:15 20:54 Home Meds: antibiotic unknown; [facility] nn1 Chart Complete MTDD
--- NOTE | 2016-06-30 01:28 | EDDOCDS ---
Physician Documentation [facility] Name: Laney Ames Age: 20 yrs Sex: Female : 1995 Arrival Date: 06/27/2016 Time: 20:42 Bed I5 / M5 Private MD: Alyson Avalos FNP Disposition: 06/27/16 23:47 Discharged to Home/Self Care. Impression: Urinary tract infection, site not specified - Pyelonephritis, Lower abdominal pain, unspecified - with Left Flank Pain. - Condition is Stable. - Discharge Instructions: Abdominal Pain, Adult, Urinary Tract Infection, [id number], Flank Pain, [id number]. - Prescriptions for Pyridium 200 mg Oral Tablet - take 1 tablet by ORAL route every 8 hours for 3 days; 9 tablet. - Medication Reconciliation, Local Pharmacy Hours form. - Follow up: Alyson Avalos; When: 1 - 2 days; Reason: Recheck today's complaints, Continuance of care. Follow up: Emergency Department; Reason: Worsening of conditions. - Problem is new. - Symptoms have improved. Historical: - Allergies: No known drug Allergies; - Home Meds: 1. ibuprofen 800 mg oral tab 4 times per day 2. Adderall XR 30 mg Oral cp24 1 cap twice a day 3. levofloxacin 750 mg Oral tab 1 tab once daily - PMHx: ADHD; - PSHx: bunion removal; - Social history: Smoking status: Patient states was never smoker of tobacco. No barriers to communication noted, The patient speaks fluent Estonian. - Family history: No immediate family members are acutely ill. - : The pt / caregiver states he / she is not on anticoagulants. Home medication list is obtained from the patient. - Exposure Risk Screening:: None identified. TEMPORARY DATA ENTRY CLERK: 06/27 20:55 LMP 06/21/2016 rs3 Vital Signs: 20:44 BP 126 / 85; Pulse 123; Resp 18 S; Temp 99.3(O); Pulse Ox 98% on R/A; Weight 79.38 kg / gr2 175 lbs (R); Height 5 ft. 6 in. (167.64 cm) (R); Pain 10/10; 21:54 BP 139 / 79; Pulse 107; Resp 20 S; Pulse Ox 100% on R/A; Pain 6/10; ms2 06/28 00:26 BP 119 / 74; Pulse 88; Resp 16; Temp 97.1(O); Pulse Ox 96% on R/A; Pain 4/10; rw1 06/27 20:44 Body Mass Index 28.25 (79.38 kg, 167.64 cm) gr2 MDM: 06/27 21:00 IV Saline Lock ordered. ef1 21:00 Undress patient appropriately for examination ordered. ef1 21:00 NS 0.9% 1000 ml IV at bolus once ordered. ef1 21:01 Urine Culture Ordered. EDMS 21:01 UCG by Nursing ordered. ef1 21:01 Amylase Ordered. EDMS 21:01 Basic Metabolic Profile Ordered. EDMS 21:01 CBC with Diff Ordered. EDMS 21:01 Lipase Ordered. EDMS 21:01 Liver Profile Ordered. EDMS 21:01 Urinalysis Ordered. EDMS 21:01 NOTHING BY MOUTH+DIET ordered. EDMS 21:11 morphine 4 mg IVP once ordered. ef1 21:11 Ondansetron ODT Oral Disintegrating Tablet 4 mg PO once ordered. ef1 21:11 -Blood Culture (Adults Only), peripheral from different site, or from device/port/PICC ef1 etc. if present ordered. 21:11 Acetaminophen Tablet 975 mg PO once ordered. ef1 21:12 CT ABD & PELVIS: No Contrast Ordered. EDMS 21:12 Lactic Acid (Caballero tube on ice) Ordered. EDMS 21:12 -Blood Culture Ordered. EDMS 21:24 -Blood Culture (Adults Only), peripheral from different site, or from device/port/PICC rs6 etc. if present complete. 21:26 BLOOD CULTURES Ordered. EDMS 22:18 Financial registration complete. kf3 22:25 [facility] Payment Agreement was scanned into [employer] and attached to record. kf3 23:32 Basic Metabolic Profile Reviewed. ef1 23:32 CBC with Diff Reviewed. ef1 23:32 Liver Profile Reviewed. ef1 23:32 Urinalysis Reviewed. ef1 23:32 Amylase Reviewed. ef1 23:32 Lipase Reviewed. ef1 23:32 Lactic Acid (Caballero tube on ice) Reviewed. ef1 23:32 CT ABD & PELVIS: No Contrast Reviewed. ef1 23:34 cefTRIAXone 1 grams IVPB once over 30 mins; dilute in 50mL of NS or D5W ordered. ef1 23:39 Phenazopyridine 200 mg PO once ordered. ef1 06/28 17:33 T-Sheet-- Draft Copy was scanned into [employer] and attached to record. klr 06/29 19:55 Radiology Report was scanned into [employer] and attached to record. [facility] Point of Care Testing: Urine : 06/27 21:51 hCG Reading: Negative; Control Reading: Positive; rs6 Ranges: Administered Medications: 21:42 Drug: morphine 4 mg Route: IVP; Site: left antecubital; ms2 21:54 Follow up: BP 139 / 79; Pulse 107 bpm; Resp 20 bpm Spontaneous; Pulse Ox 100% RA; Pain ms2 10/12 Adult; down from 02/11 21:45 Drug: Ondansetron ODT 4 mg [ondansetron 4 mg disintegrating tablet (1 tabs)] Route: PO; ms2 21:48 Drug: NS 0.9% 1000 ml [sodium chloride 0.9 % intravenous solution] Route: IV; Rate: ms2 bolus; Site: left antecubital; 23:47 Follow up: IV Status: Completed infusion; IV Intake: 1000ml nn1 21:50 Drug: Acetaminophen 975 mg [acetaminophen 325 mg tablet (3 tabs)] Route: PO; ms2 23:46 Drug: cefTRIAXone 1 grams [ceftriaxone 250 mg solution for injection] Route: IVPB; nn1 Infused Over: 30 mins; Site: left forearm; 23:46 Drug: Phenazopyridine 200 mg [phenazopyridine 100 mg tablet (2 tabs)] Route: PO; nn1 Signatures: Dispatcher [employer] EDOH Jose Luis Fermin LPN YARD WORKER rw1 Nazario Hayes, Reg Reg kf3 Ruchi Pink, PA-C PA-C ef1 Alcira Desouza RN RN rs3 Arielle Colby, RELIEF WORKER RELIEF WORKER rs6 Georgina Hess RN RN nn1 Makayla Tom Michele RN ms2 The chart was reviewed and I authenticate all verbal orders and agree with the evaluation and treatment provided.Corrections: (The following items were deleted from the chart) 22:15 20:54 Allergies: no known allergies; rs3 nn1 22:15 20:54 Home Meds: antibiotic unknown; rs3 nn1 Attachments: 22:25 [facility] Payment Agreement kf3 06/28 17:33 T-Sheet-- Draft Copy klr Chart Complete MTDD
--- NOTE | 2016-06-30 01:28 | EDDOCDS ---
Physician Documentation [facility] Name: Laney Ames Age: 20 yrs Sex: Female : 1995 Arrival Date: 06/27/2016 Time: 20:42 Bed I5 / M5 Private MD: Alyson Avalos FNP Disposition: 06/27/16 23:47 Discharged to Home/Self Care. Impression: Urinary tract infection, site not specified - Pyelonephritis, Lower abdominal pain, unspecified - with Left Flank Pain. - Condition is Stable. - Discharge Instructions: Abdominal Pain, Adult, Urinary Tract Infection, [id number], Flank Pain, [id number]. - Prescriptions for Pyridium 200 mg Oral Tablet - take 1 tablet by ORAL route every 8 hours for 3 days; 9 tablet. - Medication Reconciliation, Local Pharmacy Hours form. - Follow up: Alyson Avalos; When: 1 - 2 days; Reason: Recheck today's complaints, Continuance of care. Follow up: Emergency Department; Reason: Worsening of conditions. - Problem is new. - Symptoms have improved. Historical: - Allergies: No known drug Allergies; - Home Meds: 1. ibuprofen 800 mg oral tab 4 times per day 2. Adderall XR 30 mg Oral cp24 1 cap twice a day 3. levofloxacin 750 mg Oral tab 1 tab once daily - PMHx: ADHD; - PSHx: bunion removal; - Social history: Smoking status: Patient states was never smoker of tobacco. No barriers to communication noted, The patient speaks fluent [place]. - Family history: No immediate family members are acutely ill. - : The pt / caregiver states he / she is not on anticoagulants. Home medication list is obtained from the patient. - Exposure Risk Screening:: None identified. STORE COORDINATOR: 06/27 20:55 LMP 06/21/2016 rs3 Vital Signs: 20:44 BP 126 / 85; Pulse 123; Resp 18 S; Temp 99.3(O); Pulse Ox 98% on R/A; Weight 79.38 kg / gr2 175 lbs (R); Height 5 ft. 6 in. (167.64 cm) (R); Pain 10/10; 21:54 BP 139 / 79; Pulse 107; Resp 20 S; Pulse Ox 100% on R/A; Pain 6/10; ms2 06/28 00:26 BP 119 / 74; Pulse 88; Resp 16; Temp 97.1(O); Pulse Ox 96% on R/A; Pain 4/10; rw1 06/27 20:44 Body Mass Index 28.25 (79.38 kg, 167.64 cm) gr2 MDM: 06/27 21:00 IV Saline Lock ordered. ef1 21:00 Undress patient appropriately for examination ordered. ef1 21:00 NS 0.9% 1000 ml IV at bolus once ordered. ef1 21:01 Urine Culture Ordered. EDMS 21:01 UCG by Nursing ordered. ef1 21:01 Amylase Ordered. EDMS 21:01 Basic Metabolic Profile Ordered. EDMS 21:01 CBC with Diff Ordered. EDMS 21:01 Lipase Ordered. EDMS 21:01 Liver Profile Ordered. EDMS 21:01 Urinalysis Ordered. EDMS 21:01 NOTHING BY MOUTH+DIET ordered. EDMS 21:11 morphine 4 mg IVP once ordered. ef1 21:11 Ondansetron ODT Oral Disintegrating Tablet 4 mg PO once ordered. ef1 21:11 -Blood Culture (Adults Only), peripheral from different site, or from device/port/PICC ef1 etc. if present ordered. 21:11 Acetaminophen Tablet 975 mg PO once ordered. ef1 21:12 CT ABD & PELVIS: No Contrast Ordered. EDMS 21:12 Lactic Acid (Caballero tube on ice) Ordered. EDMS 21:12 -Blood Culture Ordered. EDMS 21:24 -Blood Culture (Adults Only), peripheral from different site, or from device/port/PICC rs6 etc. if present complete. 21:26 BLOOD CULTURES Ordered. EDMS 22:18 Financial registration complete. kf3 22:25 [facility] Payment Agreement was scanned into [employer] and attached to record. kf3 23:32 Basic Metabolic Profile Reviewed. ef1 23:32 CBC with Diff Reviewed. ef1 23:32 Liver Profile Reviewed. ef1 23:32 Urinalysis Reviewed. ef1 23:32 Amylase Reviewed. ef1 23:32 Lipase Reviewed. ef1 23:32 Lactic Acid (Caballero tube on ice) Reviewed. ef1 23:32 CT ABD & PELVIS: No Contrast Reviewed. ef1 23:34 cefTRIAXone 1 grams IVPB once over 30 mins; dilute in 50mL of NS or D5W ordered. ef1 23:39 Phenazopyridine 200 mg PO once ordered. ef1 06/28 17:33 T-Sheet-- Draft Copy was scanned into [employer] and attached to record. klr 06/29 19:55 Radiology Report was scanned into [employer] and attached to record. [facility] Point of Care Testing: Urine : 06/27 21:51 hCG Reading: Negative; Control Reading: Positive; rs6 Ranges: Administered Medications: 21:42 Drug: morphine 4 mg Route: IVP; Site: left antecubital; ms2 21:54 Follow up: BP 139 / 79; Pulse 107 bpm; Resp 20 bpm Spontaneous; Pulse Ox 100% RA; Pain ms2 10/12 Adult; down from 02/11 21:45 Drug: Ondansetron ODT 4 mg [ondansetron 4 mg disintegrating tablet (1 tabs)] Route: PO; ms2 21:48 Drug: NS 0.9% 1000 ml [sodium chloride 0.9 % intravenous solution] Route: IV; Rate: ms2 bolus; Site: left antecubital; 23:47 Follow up: IV Status: Completed infusion; IV Intake: 1000ml nn1 21:50 Drug: Acetaminophen 975 mg [acetaminophen 325 mg tablet (3 tabs)] Route: PO; ms2 23:46 Drug: cefTRIAXone 1 grams [ceftriaxone 250 mg solution for injection] Route: IVPB; nn1 Infused Over: 30 mins; Site: left forearm; 23:46 Drug: Phenazopyridine 200 mg [phenazopyridine 100 mg tablet (2 tabs)] Route: PO; nn1 Signatures: Dispatcher [employer] Jose Luis Fermin LPN MANAGEMENT LECTURER rw1 Nazario Hayes, Reg Reg kf3 Ruchi Pink, PA-C PA-C ef1 Alcira Desouza RN RN rs3 Arielle Colby, EXPERIMENTAL BOX TESTER EXPERIMENTAL BOX TESTER rs6 Georgina Hess RN RN nn1 Makayla Tom Michele RN ms2 The chart was reviewed and I authenticate all verbal orders and agree with the evaluation and treatment provided.Corrections: (The following items were deleted from the chart) 22:15 20:54 Allergies: no known allergies; rs3 nn1 22:15 20:54 Home Meds: antibiotic unknown; rs3 nn1 Attachments: 22:25 [facility] Payment Agreement kf3 06/28 17:33 T-Sheet-- Draft Copy klr Chart Complete MTDD
== END 2016-06-28 00:27 | disposition home or self-care (01) ==
LOC: M ED 20:42
DX: N39.0 Urinary tract infection, site not specified (principal); R50.9 Fever, unspecified; R11.0 Nausea; R10.9 Unspecified abdominal pain; F90.9 Attention-deficit hyperactivity disorder, unspecified type; Z79.899 Other long term (current) drug therapy
CPT/HCPCS: 36415; 74176; 80048; 80076; 81001; 81025; 82150; 83605; 83690; 85025; 87040; 87086; 87088; 87186; 87491; 87591; 96360; 96374; 96375; 99284; J0696

== ENCOUNTER → 2016-06-27 | Outpatient (REF) | payer OTHER | LOC: M SFHCLERA 14:38 | PROVIDERS: ATTEND Nurse Practitioner Family | DX: R10.9 Unspecified abdominal pain (principal) ==

== ENCOUNTER 2017-01-16 01:00 | Inpatient (IN) | payer OTHER ==
[~2017-01-16] VITALS: Ht 167.6 cm; Wt 73.0 kg
[2017-01-16] VITALS (8 sets, daily range): BP systolic 124–177; BP diastolic 78–89
[2017-01-16] MEDS ORDERED: ADDE30CA3 PO (01:08)
[2017-01-16] MEDS ORDERED: birth control pill PO (01:08)
[2017-01-16] MEDS ORDERED: ONDANSETRON 4MG/2ML VIAL (J2405) IV ONE (01:45)
[2017-01-16] MEDS ORDERED: MORPHINE 4 MG/ML 1ML SYRINGE IV ONE ×4 (01:45→07:15)
[2017-01-16] MEDS ORDERED: NS 1,000 ML IV ONE (01:45)
[2017-01-16 02:19] LABS: BASO % 0.8 % (0.0-1.0); EOS # 0.1 K/mm3 (0.0-0.50); EOS % 1.2 % (0.0-3.0); LARGE UNSTAINED CELL # 0.1 K/mm3 (0.0-0.4); LARGE UNSTAINED CELL % 2.2 % (0.0-4.0); LYMPH # 1.9 K/mm3 (1.5-6.5); LYMPH % 32.7 % (24.0-44.0); MEAN CORPUSCULAR HEMOGLOBIN 27.6 pg (27.0-33.0); MEAN CORPUSCULAR HGB CONC 32.9 g/dl (32.0-36.5); MEAN CORPUSCULAR VOLUME 83.8 fl (80.0-96.0); MONO # 0.3 K/mm3 (0.0-0.8); MONO % 5.7 % (0.0-5.0); NEUTROPHILS % 57.3 % (36.0-66.0); PLATELET COUNT, AUTOMATED 315 k/mm3 (150-450); RED CELL DISTRIBUTION WIDTH 12.5 % (11.5-14.5); WHITE BLOOD COUNT 5.3 K/mm3 (4.0-10.0)
[2017-01-16 02:22] LABS: CONTROL LINE HCG INT CTR LINE PRESENT
[2017-01-16 02:31] LABS: ALBUMIN 3.7 GM/DL (3.2-5.2); ALBUMIN/GLOBULIN RATIO 0.82 (1.00-1.93); ALKALINE PHOSPHATASE 53 U/L (45-117); ALT/SGPT 17 U/L (12-78); ANION GAP 6 MEQ/L (8-16); AST/SGOT 14 U/L (15-37); BILIRUBIN,DIRECT 0.1 MG/DL (0.0-0.2); BILIRUBIN,TOTAL 0.4 MG/DL (0.2-1.0); BLOOD UREA NITROGEN 7 MG/DL (7-18); CALCIUM LEVEL 9.1 MG/DL (8.5-10.1); CARBON DIOXIDE LEVEL 30 MEQ/L (21-32); CHLORIDE LEVEL 100 MEQ/L (98-107); CREATININE FOR GFR 0.81 MG/DL (0.55-1.02); GLOMERULAR FILTRATION RATE > 60.0 (>60); GLUCOSE, FASTING 94 MG/DL (70-105); POTASSIUM SERUM 3.3 MEQ/L (3.5-5.1); SODIUM LEVEL 136 MEQ/L (136-145); TOTAL PROTEIN 8.2 GM/DL (6.4-8.2)
[2017-01-16] MEDS ORDERED: POTASSIUM CHLORIDE 10 MEQ SR TABLET PO ONE (02:45)
[2017-01-16] MEDS ORDERED: GASTROGRAFIN SOLUTION 30ML (Q9963) PO ONE ×2 (03:00)
[2017-01-16] MEDS ORDERED: ISOVUE-370 76% 100ML VIAL (Q9967) As Ordered ONE (04:01)
--- NOTE | 2017-01-16 05:00 | REPUSA ---
CLINICAL HISTORY: Abdominal pain. TECHNIQUE: Multiple axial, sagittal and coronal CT images were obtained through the abdomen and pelvi s after administration of oral and intravenous contrast material. COMMENTS: Mild pneumoperitoneum. Diffuse thickening and enhancement of the small bowels. Small amount of free fluid in the abdomen and pelvis. Diffuse thickening of the bladder. The liver is of uniform attenuation without mass or defect. There is no intra or extrahepatic biliary ductal dilatation. The spleen is normal. The gallbladder is within normal limits. The pancreas is of normal contour and attenuation characteristics. There is no evidence of adrenal mass. Both kidneys demonstrate prompt and equal nephrograms. The kidneys are normal in size, shape and conf iguration. There is no evidence of renal or ureteral mass. No renal or ureteral calculi are identifie d. There is no hydroureter or hydronephrosis. No evidence for appendicitis. No evidence for small or large bowel obstruction. There is no evidence of intrinsic or extrinsic bladder mass. Images of the lung bases show no evidence of pleural or parenchymal mass. There are no pleural effusi ons. The bony structures are free of lytic or blastic lesions. IMPRESSION: Mild pneumoperitoneum. This is suspicious for bowel perforation without a recent surgical interventio n. This was not present on prior exam performed on 06/27/2016. Diffusely thickened small bowels. Small amount of free fluid in the abdomen and pelvis. Diffuse mesenteric thickening and stranding. No oral contrast leakage is identified from the bowels. Diffuse thickening of the bladder. Thank you for your kind referral of this patient.
[2017-01-16] MEDS ORDERED: NS 1,000 ML IV SCH (05:04)
[2017-01-16] MEDS ORDERED: JUNE1.5T PO (05:17)
[2017-01-16] MEDS ORDERED: ADDE1TAB14 PO (05:17)
[2017-01-16] MEDS ORDERED: GREE150C PO (05:17)
[2017-01-16] MEDS ORDERED: PIPERACILLIN/TAZOBACTAM SOD 3.375 GM in D5W MINI-BAG PLUS 50 ML IV ONE (06:00)
[2017-01-16] MEDS ORDERED: MIDAZOLAM INJ 2 MG/2 ML VIAL (J2250) As Ordered ONE (08:25)
[2017-01-16] MEDS ORDERED: fentaNYL 250 MCG/5 ML INJECTION (J3010) As Ordered ONE (08:25)
[2017-01-16] MEDS ORDERED: ROCURONIUM BROMIDE 50 MG/5 ML VIAL/SYRINGE As Ordered ONE (08:25)
[2017-01-16] MEDS ORDERED: HYDROmorphone HCL 2 MG/ML 1ML VIAL (J1170) As Ordered ONE (08:25)
[2017-01-16] MEDS ORDERED: LIDOCAINE 2% INJ 100 MG/5 ML SDV (FOR ANES.) As Ordered ONE (08:25)
[2017-01-16] MEDS ORDERED: ONDANSETRON 4MG/2ML VIAL (J2405) As Ordered ONE (08:25)
[2017-01-16] MEDS ORDERED: dexameTHASONE 4 MG/ML 1ML VIAL (J1100) As Ordered ONE (08:25)
[2017-01-16] MEDS ORDERED: PROPOFOL 200 MG/20 ML VIAL As Ordered ONE (08:25)
[2017-01-16] MEDS ORDERED: KETOROLAC 60 MG/2 ML VIAL (J1885) As Ordered ONE (08:25)
[2017-01-16] MEDS ORDERED: SUCCINYLCHOLINE 100 MG/5 ML SYRINGE (J0330) As Ordered ONE (08:25)
--- NOTE | 2017-01-16 08:32 | HPE ---
DATE OF ADMISSION: 01/16/2017 CHIEF COMPLAINT: Abdominal pain, acute onset last evening. HISTORY OF PRESENT ILLNESS: The patient is a 21-year-old female who presents with an acute onset of epigastric pain that started last night. Noticed that it was throughout her abdomen. Came to the emergency room for evaluation feeling generalized pain, discomfort, had some nausea without vomiting. No diarrhea. No constipation issues. Writhing in pain when she was here and was seen by the ER physicians who then proceeded with laboratory workup and x-rays and CT scan was performed as well. CT scan revealed evidence of free air with inflammation throughout the small bowel. She has normal white count and is not anemic. She does not have a history of Crohn's disease or ulcerative colitis. Does not have a history of peptic ulcer disease. Does not complain of any significant GE reflux symptoms. Has no family history of ulcer disease. Has not had any previous abdominal surgery. No melanotic stool in the past. PAST MEDICAL HISTORY: Significant for: History of attention deficit hyperactivity disorder as well as history of bunion surgery. MEDICATIONS INCLUDE: - Adderall 5 mg daily PHYSICAL EXAM: Reveals a 21-year-old female who is writhing in her bed. She is uncomfortable. She has difficulty moving because of pain, discomfort. HEENT: Reveals an atraumatic, normocephalic head with extraocular movements intact. Pupils are equal and reactive to light. Sclerae nonicteric. Oropharynx clear without exudate or lesions. Neck: Supple without adenopathy. Lungs are clear to auscultation without crackles, wheezes or rhonchi. Heart is regular without murmur. Abdomen is soft on the left-hand side. However, on the right-hand side in the epigastric area, she has guarding, rebound, peritoneal signs and an acute abdomen. No hernias or masses are appreciated. Extremities: Warm, well-perfused. IMPRESSION AND PLAN: The patient has a perforated bowel of undetermined etiology although when I review the CT scan and Dr. Goodwin reviews the CT scan, we both feel that there is some inflammatory changes in the duodenum and he possibly can see an extravasation of contrast in the duodenum consistent with a possible small bowel obstruction. The pain and the acute onset is all consistent with possible perforation of duodenal ulcer and at this time, I have discussed the options with the patient, the risks as well as benefits associated with operative intervention for an exploratory laparotomy with possible repair of duodenal ulcer, possible bowel resection, etc. Understand the risks include but are not limited to infection, bleeding, damage to surrounding structures including bowel, bladder, nerves, vessel, pancreas, duodenum, need for bowel resection and possible colostomy. The patient understands and would like to proceed with operative intervention as soon as possible. Dr. Goodwin will be bringing the patient to the operating room and she understands this, has been discussing operative intervention with him as well and we will expedite her care as soon as possible.
[2017-01-16] MEDS ORDERED: METOCLOPRAMIDE INJ 10MG/2ML VIAL (J2765) IV PRN (09:15)
[2017-01-16] MEDS ORDERED: MEPERIDINE INJ 25 MG/ML VIAL (J2175) IV PRN (09:15)
[2017-01-16] MEDS ORDERED: LR 1,000 ML IV SCH (09:15)
[2017-01-16] MEDS ORDERED: ONDANSETRON 4MG/2ML VIAL (J2405) IV PRN (09:15)
[2017-01-16] MEDS ORDERED: fentaNYL 100 MCG/2 ML INJECTION (J3010) IV PRN (09:15)
[2017-01-16] MEDS ORDERED: PERCOCET 5MG/325MG TAB PO PRN (09:15)
[2017-01-16] MEDS ORDERED: MORPHINE 2 MG/ML 1ML SYRINGE IV PRN (09:45)
[2017-01-16] MEDS ORDERED: MOM 30ML SUSPENSION UDC PO PRN (09:45)
[2017-01-16] MEDS ORDERED: ACETAMINOPHEN TAB 650MG DOSE (2X325MG) PO PRN (09:45)
[2017-01-16] MEDS ORDERED: LABETALOL HCL 100 MG/20 ML VIAL As Ordered ONE (09:58)
[2017-01-16] MEDS: LABETALOL HCL 100 MG/20 ML VIAL IV SCH ×4 (10:00→11:30)
--- NOTE | 2017-01-16 10:31 | RO ---
DATE OF PROCEDURE: 01/16/2017 PREOPERATIVE DIAGNOSIS: Perforated viscus. POSTOPERATIVE DIAGNOSIS: Perforated duodenal ulcer. PROCEDURE: Exploratory laparotomy with abdominal washout and repair of duodenal ulcer. SURGEON: Sean Goodwin DO ART TRACER: Tom Murdock MD ANESTHESIA: General. ESTIMATED BLOOD LOSS: 10 mL. 10 COMPLICATIONS: None. INDICATIONS FOR PROCEDURE: The patient is a 21-year-old female who presents with severe epigastric abdominal pain that started last evening. She tried to sleep it off and just come and see her primary in the morning however, the pain got progressively worse throughout the evening. She came into emergency room and was found to have normal labs, but CT scan showed free air below the diaphragm as well as some inflammation around the duodenum. Recommendation was to proceed with exploratory laparotomy with repair of perforated viscus. Risks and benefits of the procedure not limited to, but including bleeding, infection, hernia formation, damage to surrounding structures, and the possible need further surgery were discussed in detail with the patient. Informed consent was obtained and the procedure was planned emergently. PROCEDURE: The patient brought back to operating room one. After sufficient sedation, the abdomen was sterilely prepped and draped. Next, a time out was done to confirm proper patient and proper procedure. Following that, a midline incision was made epigastrically. The incision was carried down below the fascia. The fascia was entered and the abdomen was entered. There was an approximately 1 cm hole in the anterior duodenal bulb that was easily identified. The area around this was suctioned clean because there was lots of succus free in the abdomen. The hole was sutured closed primarily with three interrupted #3-0 Vicryl sutures. This was then covered with some TISSEEL. A layer of omentum was then placed over top of this, sutured in place using the tails of the three previous sutures as a Sulaiman patch. Once this was completed, a #19-[place] Yovani drain was placed just superior to the duodenum, underneath the liver, and brought out through a stab incision in the right upper quadrant. The drain was sutured in place with a #3-0 silk suture and connected to the bulb. The abdomen was then washed out in both upper quadrants. Once that was completed, the fascia was closed with a running looped PDS. The subcutaneous tissues were then irrigated with saline and brought together with interrupted #3-0 Vicryl sutures. The skin was then closed with jean marie, thus ending the procedure. The patient tolerated procedure well and was sent to the postanesthesia care unit (PACU) in stable condition.
[2017-01-16] MEDS ORDERED: FLUCONAZOLE 200 MG in APPROPRIATE DILUENT 1 EA IV ONE (11:00)
[2017-01-16] MEDS: PANTOPRAZOLE 40MG INJ (PROTONIX) (C9113) IV SCH (12:10)
[2017-01-16] MEDS: KETOROLAC 30 MG/ML VIAL (J1885) IV PRN ×2 (12:11→21:09)
[2017-01-16] MEDS: LR 1,000 ML IV SCH ×2 (12:11→16:21)
[2017-01-16] MEDS: HEPARIN SOD (PORCINE) 5000 UNITS/ML VIAL SC SCH ×2 (13:32→21:08)
[2017-01-16] MEDS: PIPERACILLIN/TAZOBACTAM SOD 3.375 GM in D5W MINI-BAG PLUS 50 ML IV SCH ×3 (13:33→23:33)
[2017-01-16] MEDS: NORCO, ANEXSIA 5/325MG TABLET (HYDROcodone/ACETAMINOPHEN) PO PRN (14:48)
[2017-01-16] MEDS: SENOKOT S TAB PO SCH (21:08)
[2017-01-17] VITALS: BP 114/70
[2017-01-17] MEDS: NORCO, ANEXSIA 5/325MG TABLET (HYDROcodone/ACETAMINOPHEN) PO PRN (00:58)
[2017-01-17] MEDS: LR 1,000 ML IV SCH (01:35)
[2017-01-17 04:00] VITALS: BP 130/72
[2017-01-17] MEDS: HEPARIN SOD (PORCINE) 5000 UNITS/ML VIAL SC SCH ×3 (06:27→20:28)
[2017-01-17] MEDS: PIPERACILLIN/TAZOBACTAM SOD 3.375 GM in D5W MINI-BAG PLUS 50 ML IV SCH ×3 (06:27→18:47)
[2017-01-17 08:00] VITALS: BP 118/72
[2017-01-17 09:12] LABS: MEAN CORPUSCULAR HEMOGLOBIN 28.6 pg (27.0-33.0); MEAN CORPUSCULAR HGB CONC 33.6 g/dl (32.0-36.5); MEAN CORPUSCULAR VOLUME 85.1 fl (80.0-96.0); RED CELL DISTRIBUTION WIDTH 12.7 % (11.5-14.5); WHITE BLOOD COUNT 10.2 K/mm3 (4.0-10.0)
[2017-01-17] MEDS: SENOKOT S TAB PO SCH ×2 (09:18→20:29)
[2017-01-17] MEDS: PANTOPRAZOLE 40MG INJ (PROTONIX) (C9113) IV SCH (09:19)
[2017-01-17 09:44] LABS: ANION GAP 7 MEQ/L (8-16); BLOOD UREA NITROGEN 8 MG/DL (7-18); CALCIUM LEVEL 8.7 MG/DL (8.5-10.1); CARBON DIOXIDE LEVEL 29 MEQ/L (21-32); CHLORIDE LEVEL 105 MEQ/L (98-107); CREATININE FOR GFR 0.74 MG/DL (0.55-1.02); GLOMERULAR FILTRATION RATE > 60.0 (>60); GLUCOSE, FASTING 97 MG/DL (70-105); MAGNESIUM LEVEL 2.2 MG/DL (1.8-2.4); POTASSIUM SERUM 4.2 MEQ/L (3.5-5.1); SODIUM LEVEL 141 MEQ/L (136-145)
[2017-01-17] MEDS: KCL 10MEQ IN D5/0.45NS 1000ML 1,000 ML IV SCH ×2 (11:10→20:29)
[2017-01-17 12:00] VITALS: BP 116/77
[2017-01-17] MEDS: KETOROLAC 30 MG/ML VIAL (J1885) IV PRN ×2 (14:10→20:28)
[2017-01-17 22:00] VITALS: BP 129/80
[2017-01-18] MEDS: PIPERACILLIN/TAZOBACTAM SOD 3.375 GM in D5W MINI-BAG PLUS 50 ML IV SCH ×5 (00:07→23:47)
[2017-01-18] MEDS: KCL 10MEQ IN D5/0.45NS 1000ML 1,000 ML IV SCH (03:00)
[2017-01-18 06:00] VITALS: BP 127/69
[2017-01-18] MEDS: HEPARIN SOD (PORCINE) 5000 UNITS/ML VIAL SC SCH ×3 (06:03→21:42)
[2017-01-18 07:24] LABS: MEAN CORPUSCULAR HEMOGLOBIN 27.6 pg (27.0-33.0); MEAN CORPUSCULAR HGB CONC 32.1 g/dl (32.0-36.5); MEAN CORPUSCULAR VOLUME 86.1 fl (80.0-96.0); RED CELL DISTRIBUTION WIDTH 12.7 % (11.5-14.5); WHITE BLOOD COUNT 7.9 K/mm3 (4.0-10.0)
[2017-01-18 07:36] LABS: ANION GAP 7 MEQ/L (8-16); BLOOD UREA NITROGEN 4 MG/DL (7-18); CALCIUM LEVEL 8.1 MG/DL (8.5-10.1); CARBON DIOXIDE LEVEL 28 MEQ/L (21-32); CHLORIDE LEVEL 105 MEQ/L (98-107); CREATININE FOR GFR 0.71 MG/DL (0.55-1.02); GLOMERULAR FILTRATION RATE > 60.0 (>60); GLUCOSE, FASTING 93 MG/DL (70-105); MAGNESIUM LEVEL 2.1 MG/DL (1.8-2.4); POTASSIUM SERUM 3.7 MEQ/L (3.5-5.1); SODIUM LEVEL 140 MEQ/L (136-145)
[2017-01-18] MEDS: KETOROLAC 30 MG/ML VIAL (J1885) IV PRN (09:56)
[2017-01-18] MEDS: PANTOPRAZOLE 40MG INJ (PROTONIX) (C9113) IV SCH (09:56)
[2017-01-18] MEDS: SENOKOT S TAB PO SCH ×2 (09:56→21:42)
--- NOTE | 2017-01-18 10:47 | IPNPDOC ---
Subjective General Date/Time Seen The patient was seen on 01/18/17 at 10:45. Subject Chief Complaint/History The patient is a 21-year-old female admitted with a reason for visit of Perforated Duodenal Bulb Ulcer. Patient seen, appears very comfortable. Denies nausea. Reports flatus. Ambulating to hallways. Current Medications Current Medications Current Medications Acetaminophen (Tylenol Tab) 650 mg Q4HP PRN PO MILD PAIN or TEMP > 101; Start 01/16/17 at 09:45; Stop 02/15/17 at 09:44 Acetaminophen/ Hydrocodone Bitart (Shaniko, Anexsia 5/325) 2 tab Q6HP PRN PO SEVERE PAIN (PS 8-10) Last administered on 01/17/17 00:58; Start 01/16/17 at 09 :45; Stop 01/23/17 at 09:44 Fentanyl Citrate (Sublimaze) 25 mcg Q5MP PRN IV MODERATE PAIN (PS 4-7); Start 01/16/17 at 09:15; Stop 01/16/17 at 10:15; Status DC Heparin Sodium (Porcine) (Heparin) 5,000 units Q8H SC Last administered on 01/18 06:03; Start 01/16/17 at 14:00; Stop 01/21/17 at 13:59 Home Med (Med Rec Complete!) ASDIRECTED XX ; Start 01/16/17 at 05:30; Stop at 05:30; Status DC Ketorolac Tromethamine (ToRADol) 30 mg Q6HP PRN IV MILD/MODERATE PAIN (PS 1-7) Last administered on 01/18/17 09:56; Start 01/16/17 at 09:45; Stop 01/21/17 at 09:44 Labetalol HCl (Normodyne, Trandate) 5 mg Q5M IV Last administered on 01/16/17 10:05; Start 01/16/17 at 10:15; Stop 01/16/17 at 10:36; Status DC Lactated Ringer's 1,000 ml @ 100 mls/hr Q10H IV ; Start 01/16/17 at 09:15; Stop 01/16/17 at 10:15; Status DC Lactated Ringer's 1,000 ml @ 150 mls/hr Q6H40M IV Last administered on 01:35; Start 01/16/17 at 12:15; Stop 01/17/17 at 09:23; Status DC Magnesium Hydroxide (Milk Of Magnesia) 30 ml DAILYPRN PRN PO CONSTIPATION; Start 01/16/17 at 09:45; Stop 02/15/17 at 09:44 Meperidine HCl (Demerol) 12.5 mg Q5MP PRN IV SHIVERING; Start 01/16/17 at 09:15 ; Stop 01/16/17 at 10:15; Status DC Metoclopramide HCl (REGLAN INJection) 10 mg Q6HP PRN IV NAUSEA OR VOMITING; Start 01/16/17 at 09:15; Stop 01/16/17 at 10:15; Status DC Morphine Sulfate (Morphine Sulfate Inj) 2 mg Q2HP PRN IV SEVERE PAIN (PS 8-10) ; Start 01/16/17 at 09:45; Stop 01/23/17 at 09:44 Ondansetron HCl (ZOFRAN INJection) 4 mg Q4HP PRN IV NAUSEA OR VOMITING; Start 01/16/17 at 09:15; Stop 01/16/17 at 10:15; Status DC Oxycodone/ Acetaminophen (Percocet 5mg/ 325mg Tablet) 1 tab ASDIRECTED PRN PO MILD/MODERATE PAIN (PS 1-7); Start 01/16/17 at 09:15; Stop 01/16/17 at 10:15; Status DC Pantoprazole Sodium (Protonix) 40 mg DAILY IV Last administered on 01/18/17 09 :56; Start 01/16/17 at 09:00; Stop 02/15/17 at 08:59 Piperacillin Sod/ Tazobactam Sod 3.375 gm/Dextrose 50 ml @ 50 mls/hr Q6H IV Last administered on 01/18/17 06:03; Start 01/16/17 at 12:00; Stop 01/23/17 at 11:59 Potassium Chloride/Dextrose/ Sod Cl 1,000 ml @ 125 mls/hr Q8H IV Last administered on 01/18/17 03:00; Start 01/17/17 at 11:00; Stop 02/16/17 at 10: 59 Senna/Docusate Sodium (Senokot S) 1 tab BID PO Last administered on 01/18/17 09:56; Start 01/16/17 at 21:00; Stop 02/15/17 at 20:59 Sodium Chloride 1,000 ml @ 150 mls/hr Q6H40M IV Last administered on t 05:30; Start 01/16/17 at 05:04; Stop 01/16/17 at 07:28; Status DC Allergies Coded Allergies: No Known Allergies (Unverified , 01/16/17) Objective Physical Examination Examination GENERAL APPEARANCE:comfortable. SKIN: Warm and moist. HEENT: Normocephalic, atraumatic. Mogul palpebral conjunctiva, anicteric sclerae. Lips and mucosa appear moist. NGT functioning NECK: Supple, no thyromegaly. No obvious jugular venous distention. LUNGS: Clear to auscultation bilaterally. No wheezing appreciated. HEART: No chest wall abnormalities. Regular rate and rhythm with no murmurs appreciated. ABDOMEN: Abdomen is nondistended, soft, flat. Upper midline incision C/D/I. Justin drain light serous. EXTREMITIES: Extremities have no deformities. No edema identified. Vital Signs Vital Signs Date Time Temp Pulse Resp B/P (MAP) Pulse Ox O2 Delivery O2 Flow Rate FiO2 01/18/17 06:00 98.1 71 16 127/69 (88) 96 Room Air 01/16/17 09:20 2 I&Os I&O- Last 24 Hours up to 6 AM 01/18/17 06:00 Intake Total 1590 ml Output Total 2775 ml Balance -1185 ml Laboratory Data Labs 24H Laboratory Tests 2 01/18/17 07:04: Anion Gap 7L, Glomerular Filtration Rate > 60.0, Blood Urea Nitrogen 4L, Creatinine 0.71, Sodium Level 140, Potassium Level 3.7, Chloride Level 105, Carbon Dioxide Level 28, Calcium Level 8.1L, Magnesium Level 2.1 CBC/BMP Laboratory Tests 01/18/17 07:04 Red Blood Count 3.97 L, Mean Corpuscular Volume 86.1, Mean Corpuscular Hemoglobin 27.6, Mean Corpuscular Hemoglobin Concent 32.1, Red Cell Distribution Width 12.7, Calcium Level 8.1 L Microbiology Microbiology 01/16/17 Urine Culture - Final, Complete Impression Duodenal ulcer with perforation POD 2 OK to d/c NGT clears no carbonated drinks continue ambulation D/C IVF Plan / VTE VTE Prophylaxis Ordered?: Yes ESTEBAN SLOAN MD Jan 18, 2017 10:47
[2017-01-18 14:00] VITALS: BP 137/92
[2017-01-18] MEDS: MAALOX 30 ML SUSP *UDC PO PRN ×2 (15:36→21:42)
[2017-01-18] MEDS: NORCO, ANEXSIA 5/325MG TABLET (HYDROcodone/ACETAMINOPHEN) PO PRN (18:27)
[2017-01-18 22:00] VITALS: BP 128/88
[2017-01-19] MEDS: NORCO, ANEXSIA 5/325MG TABLET (HYDROcodone/ACETAMINOPHEN) PO PRN ×3 (00:24→18:20)
[2017-01-19] MEDS: HEPARIN SOD (PORCINE) 5000 UNITS/ML VIAL SC SCH ×3 (05:54→20:46)
[2017-01-19] MEDS: PIPERACILLIN/TAZOBACTAM SOD 3.375 GM in D5W MINI-BAG PLUS 50 ML IV SCH ×4 (05:54→23:43)
[2017-01-19 06:00] VITALS: BP 113/60
[2017-01-19 06:57] LABS: MEAN CORPUSCULAR HEMOGLOBIN 28.4 pg (27.0-33.0); MEAN CORPUSCULAR HGB CONC 33.8 g/dl (32.0-36.5); MEAN CORPUSCULAR VOLUME 84.2 fl (80.0-96.0); RED CELL DISTRIBUTION WIDTH 12.2 % (11.5-14.5); WHITE BLOOD COUNT 4.2 K/mm3 (4.0-10.0)
[2017-01-19 07:16] LABS: ANION GAP 7 MEQ/L (8-16); BLOOD UREA NITROGEN 5 MG/DL (7-18); CALCIUM LEVEL 8.5 MG/DL (8.5-10.1); CARBON DIOXIDE LEVEL 31 MEQ/L (21-32); CHLORIDE LEVEL 104 MEQ/L (98-107); CREATININE FOR GFR 0.72 MG/DL (0.55-1.02); GLOMERULAR FILTRATION RATE > 60.0 (>60); GLUCOSE, FASTING 89 MG/DL (70-105); MAGNESIUM LEVEL 2.3 MG/DL (1.8-2.4); POTASSIUM SERUM 3.7 MEQ/L (3.5-5.1); SODIUM LEVEL 142 MEQ/L (136-145)
[2017-01-19] MEDS: PANTOPRAZOLE 40MG INJ (PROTONIX) (C9113) IV SCH (10:10)
[2017-01-19] MEDS: MAALOX 30 ML SUSP *UDC PO PRN ×2 (10:10→20:48)
[2017-01-19] MEDS: SENOKOT S TAB PO SCH ×2 (10:11→21:00)
[2017-01-19 14:00] VITALS: BP 124/77
[2017-01-19 22:00] VITALS: BP 119/64
[2017-01-20] MEDS: PIPERACILLIN/TAZOBACTAM SOD 3.375 GM in D5W MINI-BAG PLUS 50 ML IV SCH (05:58)
[2017-01-20] MEDS: HEPARIN SOD (PORCINE) 5000 UNITS/ML VIAL SC SCH (05:59)
[2017-01-20 06:00] VITALS: BP 120/72
[2017-01-20 06:46] LABS: MEAN CORPUSCULAR HEMOGLOBIN 28.7 pg (27.0-33.0); MEAN CORPUSCULAR HGB CONC 34.1 g/dl (32.0-36.5); MEAN CORPUSCULAR VOLUME 84.1 fl (80.0-96.0); RED CELL DISTRIBUTION WIDTH 12.2 % (11.5-14.5); WHITE BLOOD COUNT 4.1 K/mm3 (4.0-10.0)
[2017-01-20 07:04] LABS: ANION GAP 6 MEQ/L (8-16); BLOOD UREA NITROGEN 10 MG/DL (7-18); CALCIUM LEVEL 8.7 MG/DL (8.5-10.1); CARBON DIOXIDE LEVEL 30 MEQ/L (21-32); CHLORIDE LEVEL 104 MEQ/L (98-107); CREATININE FOR GFR 0.64 MG/DL (0.55-1.02); GLOMERULAR FILTRATION RATE > 60.0 (>60); GLUCOSE, FASTING 85 MG/DL (70-105); MAGNESIUM LEVEL 2.4 MG/DL (1.8-2.4); POTASSIUM SERUM 3.8 MEQ/L (3.5-5.1); SODIUM LEVEL 140 MEQ/L (136-145)
[2017-01-20] MEDS: NORCO, ANEXSIA 5/325MG TABLET (HYDROcodone/ACETAMINOPHEN) PO PRN (07:29)
[2017-01-20] MEDS: SENOKOT S TAB PO SCH (07:30)
[2017-01-20] MEDS: PANTOPRAZOLE 40MG INJ (PROTONIX) (C9113) IV SCH (07:30)
[2017-01-20 08:47] VITALS: BP 121/95
[2017-01-20] MEDS ORDERED: NORCOTAB PO (08:56)
[2017-01-20] MEDS ORDERED: OMEP40CA2 PO (08:56)
[2017-01-20] MEDS ORDERED: SUCR1TA PO (08:56)
[2017-01-20] MEDS ORDERED: SENN1TAB2 PO (08:56)
--- NOTE | 2017-01-21 07:22 | DSES ---
DATE OF ADMISSION: 01/16/2017 DATE OF DISCHARGE: 01/20/2017 ADMISSION DIAGNOSIS: Perforated viscus. DISCHARGE DIAGNOSIS: Perforated duodenal ulcer. HOSPITAL COURSE: The patient 21-year-old female who presented to the emergency room with severe epigastric abdominal pain. She had normal laboratories; however, CT scan showed free air with some inflammation around the duodenum and some extravasation of contrast on her CAT scan. Recommendation was to take her to the operating room for emergent surgery. She was brought from the emergency room directly to the operating room. She had exploratory laparotomy and repair of a perforated duodenal ulcer. Postoperatively, she had an nasogastric tube in place, Yovani drain next to her duodenum, and she was sent back to the floor. Postop day #1, she was doing well. Her pain was much improved. She was ambulating in the halls, had minimal output from her Yovani drain, and she was passing gas and urinating appropriately. By the next day, 01/18/2017, she was continuing to do well. She was started on a clear liquid diet and the NG tube was clamped. There was no signs of any increase in output from her Yovani drain. Her NG tube was removed later in the day. On the morning of the , she was advanced to a soft diet. Continued to show improvement. She had minimal pain, minimal output from the Yovani drain, and she was tolerating soft foods. Then on the morning of 01/20, she was continuing to do well. Abdomen was soft, Yovani drain was serous. No change in Yovani drain output with an increase in food. She had bowel movements and was ambulating very well. Therefore, the plan was to discharge home on 01/20. Her incisions were clean, dry and intact. Jean Marie were in place. The Yovani drain was removed and she was discharged home. PLAN: Plan is to followup with me in the office in 2 weeks from her original surgery date to have the jean marie removed. She was sent home with prescriptions for omeprazole twice a day, Carafate before food and nightly, senna and Marathon.
== END 2017-01-20 11:35 | disposition home or self-care (01) | DRG 331 ==
LOC: M ED 01:00 → M ED INP 09:35 → M MS4PR 11:17 → M MS5PR 01-17 15:49
PROVIDERS: ADMIT Surgery; ATTEND Surgery
PROC: 0DU907Z Supplement Duodenum with Autologous Tissue Substitute, Open Approach (ICD-10-PCS; principal; 2017-01-16 07:18)
DX: K26.1 Acute duodenal ulcer with perforation (principal)

== ENCOUNTER → 2019-06-11 | Outpatient (REF) | payer OTHER ==
[~2019-06-11] MED LIST: ADDE1TAB14 PO; ADDE30CA3 PO; GREE150C PO; HYDR-3715 PO; JUNE1.5T PO; OMEP40CA97 PO; SENN-53 PO; SUCR1TA PO; birth control pill PO
== END ==
LOC: M SFHCLERA 11:43
PROVIDERS: ATTEND Nurse Practitioner Family
DX: R53.81 Other malaise (principal)